=== PATIENT | male | born 1960 ===

== ENCOUNTER 2023-01-24 05:47 | Day surgery (SDC) | payer OTHER ==
[2023-01-18 11:27] LABS: HEMATOCRIT 44.7 % (39.0-48.0); HEMOGLOBIN 14.9 g/dL (13-16.00); MEAN CELL VOLUME 88.8 fL (80.0-100.00); MEAN CORPUSCULAR HEMOGLOBIN 29.6 pg (27.00-32.0); MEAN CORPUSCULAR HGB CONC 33.3 g/dl (32.0-36.0); PLATELET COUNT 260 K/uL (150-450); RED BLOOD COUNT 5.04 M/uL (4.00-6.00); RED CELL DISTRIBUTION WIDTH 15.2 % (11.5-14.5)
[2023-01-18 11:29] LABS: PH,URINE 6.5 (5.0-8.0); URINE APPEARANCE Clear; URINE BILIRRUBIN Negative (NEGATIVE); URINE BLOOD Negative; URINE COLOR Yellow; URINE GLUCOSE Negative (NEGATIVE); URINE LEUKOCYTE Negative; URINE NITRATE Negative; URINE PROTEIN Negative (NEGATIVE)
[2023-01-18 11:33] LABS: URINE BACTERIA 13.8 uL (0.0-1933)
[2023-01-18 11:54] LABS: ALBUMIN 3.8 gm/dL (3.4-5.0); BILIRUBIN TOTAL 0.47 mg/dL (0.3-1.2); CALCIUM 9.7 mg/dL (8.5-10.1); CREATININE SERUM 0.9 mg/dL (0.70-1.30); GFR 86.07; GLOBULINA 3.2 G/DL (2.4-3.5); INR 1.04; PARTIAL THROMBOPLASTIN TIME 29.6 SECONDS (22.0-34.0); POTASSIUM 4.83 mEq/L (3.5-5.1); PROTHROMBIN TIME 10.9 SECONDS (9.0-11.5)
[2023-01-18 12:13] LABS: URINE EPITHELIAL CELLS 0.3 uL (0.0-38.8); URINE RBC 0.4 uL (0.0-20.8); URINE WBC 1.3 uL (0.0-23.2)
[~2023-01-24] VITALS: Ht 167.6 cm; Wt 104.3 kg
[~2023-01-24 05:47] MED LIST: ALLEGRA ALLERG180 MG PO; BUSPIRONE HCL7.5 MG PO; CLARITIN10 M1 PO; PROAIR RESPICL90 MCG IH; ZESTRIL10 M1 PO
[2023-01-24] MEDS ORDERED: OXYC1TAB9 PO (08:56)
== END 2023-01-24 14:20 | disposition home or self-care (01) ==
LOC: CIR.AMB 05:47
PROVIDERS: ATTEND Surgery
DX: K64.2 Third degree hemorrhoids (principal); K64.8 Other hemorrhoids; K64.4 Residual hemorrhoidal skin tags; K62.89 Other specified diseases of anus and rectum; K62.5 Hemorrhage of anus and rectum; I10 Essential (primary) hypertension; Z20.822 Contact with and (suspected) exposure to COVID-19; J30.9 Allergic rhinitis, unspecified